=== PATIENT | male | born 1970 | race African-American/Black ===

== ENCOUNTER 2019-07-04 14:38 | Emergency (ER) | payer SELFPAY ==
[~2019-07-04] VITALS: Ht 172.7 cm; Wt 77.0 kg
[2019-07-04] MEDS ORDERED: IBUPROFEN 600MG TABLET PO STA (15:51)
[2019-07-04 16:32] LABS: CHLORIDE 108 mEq/L (98-107)
[2019-07-04 16:36] LABS: BASOPHILS % 0.7 % (0.0-2.0); EOSINOPHILS % 3.3 % (0.0-5.0); HEMATOCRIT. 36.8 % (42.0-52.0); LYMPHOCYTES % 20.4 % (20.0-50.0); MEAN CORPUSCULAR HEMOGLOBIN 31.1 pg (28.0-32.0); MEAN CORPUSCULAR VOLUME 88.1 fL (80.0-94.0); MEAN PLATELET VOLUME 7.9 fl (7.4-10.4); MONOCYTES % 13.1 % (2.0-8.0); NEUTROPHILS % 62.5 % (40.0-76.0); PLATELET 122 x1000/uL (130-400); RED BLOOD CELL COUNT 4.18 mill/uL (4.7-6.1); RED CELL DISTRIBUTION WIDTH 13.9 % (11.6-14.6)
[2019-07-04] MEDS ORDERED: GUAIFENESIN/CODEINE 200-20MG/10ML UDC PO ONE (18:15)
[2019-07-04 19:30] VITALS: BP 148/94
== END 2019-07-04 20:00 | disposition home or self-care (01) ==
LOC: ER 14:38
DX: R05 Cough (principal); M79.10 Myalgia, unspecified site; I10 Essential (primary) hypertension; F12.10 Cannabis abuse, uncomplicated; Z98.890 Other specified postprocedural states
CPT/HCPCS: 36415; 71045; 80053; 85025; 99284